=== PATIENT | female | born 1935 | race Caucasian/White ===

== ENCOUNTER 2021-10-29 22:35 | Emergency (ER) | payer MEDICARE, OTHER ==
[2021-10-30] MEDS: Bupivacaine 0.5% 10 ML SDV INJECT ONE (01:56)
[2021-10-30] MEDS: Lidocaine 1% 10 ML MDV INJECT ONE (01:56)
== END 2021-10-30 02:54 | disposition home or self-care (01) ==
LOC: JD.ED 22:35
DX: S52.572A Other intraarticular fracture of lower end of left radius, initial encounter for closed fracture (principal); S61.213A Laceration without foreign body of left middle finger without damage to nail, initial encounter; Z79.899 Other long term (current) drug therapy; Z79.4 Long term (current) use of insulin; Z79.01 Long term (current) use of anticoagulants; W10.9XXA Fall (on) (from) unspecified stairs and steps, initial encounter
CPT/HCPCS: 12001; 70450; 73030; 73060; 73110; 73130; 99284; J3490; 99283